=== PATIENT | female | born 1955 | race Caucasian/White ===

== ENCOUNTER 2017-02-14 09:57 | Emergency (ER) | payer SELFPAY ==
[~2017-02-14] VITALS: Ht 165.1 cm; Wt 77.1 kg
[2017-02-14 10:15] VITALS: BP 154/94
--- NOTE | 2017-02-14 10:16 | Emergency Room Report ---
History of Present Illness General Chief Complaint: Upper Extremity Injury Source: Patient Present Illness HPI Patient presents with complaints of left-sided rib cage chest pain Patient reports falling 2 days ago she has continued pain in that area Denies any loss of consciousness patient also had Mild discomfort to the left elbow but denies any active pain at this time denies any neck pain or photophobia Pain in her left rib cage region is 5/10 Patient reports that it was not helped very much with oral medication Allergies: Coded Allergies: No Known Allergies (Unverified , 02/14/17) Patient History Past Medical History: see triage record Pertinent Family History: none Reviewed Nursing Documentation: PMH: Agreed, PSxH: Agreed Nursing Documentation-PMH Past Medical History: No Stated History Review of Systems All Other Systems: negative except mentioned in HPI Physical Exam Vital Signs Date Time Temp Pulse Resp B/P (MAP) Pulse Ox O2 Delivery O2 Flow Rate FiO2 02/14/17 10:04 98.4 81 20 154/94 96 Room Air Sp02 EP Interpretation: reviewed, normal General Appearance: no apparent distress Head: normocephalic, atraumatic Eyes: bilateral eye PERRL, bilateral eye EOMI ENT: hearing grossly normal, normal pharynx Neck: full range of motion, supple Respiratory: lungs clear Cardiovascular #1: regular rate, rhythm, no edema Gastrointestinal: non tender, soft Musculoskeletal: other - Tender on palpation of the rib cage mid axilla just below the breast on the left side, for some motion otherwise in the upper extremity Neurologic: alert, oriented x3 Skin: normal color, no rash Lymphatic: no adenopathy Medical Decision Making Diagnostic Impression: Primary Impression: Closed rib fracture ER Course Given the patient's presentation and history Imaging was obtained Radiology does visualized left-sided rib fracture In line with the location of the patient's discomfort The lower rib cage was apparently not fully visualized however the patient does not clinically have any discomfort in that area At this time I discussed the findings with the patient and she will have close outpatient followup encouraged to have deep inspirations throughout the day CT/MRI/US Diagnostic Results CT/MRI/US Diagnostic Results : Impression CT chestImpression: Positive for nondisplaced left anterolateral fifth rib fracture. No pneumothorax. This was discussed by phone with Dr. Schrader at the time of interpretation No other acute bony trauma Bilateral basilar pulmonary parenchymal opacities. Most likely represent areas of fibrosis or atelectasis, less likely could represent areas of contusion, given history of recent trauma 10 mm cutaneous lesion in the left upper chest wall. Most likely a sebaceous cyst or similar lesion. This should be evident clinically Last Vital Signs Date Time Temp Pulse Resp B/P (MAP) Pulse Ox O2 Delivery O2 Flow Rate FiO2 02/14/17 10:04 98.4 81 20 154/94 96 Room Air Status: improved Disposition: HOME, SELF-CARE Condition: Improved Additional Instructions: Patient is provided with the discharge instructions notified to follow up with primary doctor in the next 2-3 days otherwise return to the er with any worsening symptoms. Please note that this report is being documented using eco[employer]cloud technology. This can lead to erroneous entry secondary to incorrect interpretation by the dictating instrument. HARRIET SCHRADER D.O. Feb 14, 2017 10:16
--- NOTE | 2017-02-14 11:02 | Diagnostic Imaging Report ---
Clinical Indication: TRAUMA, chest pain, possible rib fracture Technique: Spiral acquisitions obtained through the chest. No IV contrast utilized, per trauma protocol. Multiplanar reconstructions generated. Total dose length product 909 mGycm. CTDIvol(s) 23 mGy. Dose reduction achieved using automated exposure control Comparison: None Findings:There is a fracture of the anterolateral left fifth rib. No other rib fractures are demonstrated. Note, however, that the the ninth through 12th ribs are incompletely assessed, as they are incompletely included in the imaging volume. No right rib fractures are demonstrated. The sternum appears intact. No other fractures are demonstrated. No pneumothorax The lungs demonstrate bilateral basilar opacities, mostly groundglass opacities likely representing areas of fibrosis or atelectasis. These could also represent areas of contusion given history of recent trauma. No focal dense consolidation demonstrated. No effusions. No masses or nodules. No mediastinal or hilar mass or adenopathy. The heart size is upper limit normal. No pericardial effusion. No axillary or chest wall mass or adenopathy. There is a subcutaneous round 10 mm lesion in the upper medial left anterior chest wall. Impression: Positive for nondisplaced left anterolateral fifth rib fracture. No pneumothorax. This was discussed by phone with Dr. Barragan at the time of interpretation No other acute bony trauma Bilateral basilar pulmonary parenchymal opacities. Most likely represent areas of fibrosis or atelectasis, less likely could represent areas of contusion, given history of recent trauma 10 mm cutaneous lesion in the left upper chest wall. Most likely a sebaceous cyst or similar lesion. This should be evident clinically The CT scanner at [facility] is accredited by the [employer] and the scans are performed using protocols designed to limit radiation exposure to as low as reasonably achievable to attain images of sufficient resolution adequate for diagnostic evaluation.
[2017-02-14 11:28] VITALS: BP 154/94
== END 2017-02-14 11:28 | disposition home or self-care (01) ==
LOC: EMR 10:16
DX: S22.32XA Fracture of one rib, left side, initial encounter for closed fracture (principal); W19.XXXA Unspecified fall, initial encounter; Y92.89 Other specified places as the place of occurrence of the external cause
CPT/HCPCS: 71250; 99284

== ENCOUNTER 2017-05-10 21:11 | Emergency (ER) | payer SELFPAY ==
[~2017-05-10] VITALS: Ht 167.6 cm; Wt 72.6 kg
[2017-05-10] MEDS ORDERED: NKM (21:25)
[2017-05-10 21:40] VITALS: BP 139/95
[2017-05-10] MEDS ORDERED: Lidocaine 1% Plain 30 ml INJ ONE (21:45)
[2017-05-10] MEDS ORDERED: Norco 5mg/325mg tab ORAL ONE (22:15)
[2017-05-10] MEDS ORDERED: Bactrim-DS 1 tab ORAL ONE (22:15)
[2017-05-10] MEDS ORDERED: IBUPROFEN600 MG ORAL (22:19)
[2017-05-10] MEDS ORDERED: BACTRIM DS TAB1 EAC1 ORAL (22:19)
--- NOTE | 2017-05-10 22:19 | Emergency Room Report ---
History of Present Illness General Chief Complaint: Skin Rash/Abscess Source: Patient Present Illness HPI Is a pleasant 61-year-old female with no significant past medical history. She presents with chief complaint of rash to her left chest. Been ongoing for 5 days. Increasing pain and vomiting. No drainage. Increasing redness. No fever chills. Never had this problem before the pain is 7/10. Worse With palpation. Allergies: Coded Allergies: No Known Allergies (Unverified , 02/14/17) Patient History Past Medical History: see triage record, old chart reviewed Past Surgical History: other Pertinent Family History: none Social History: Denies: smoking Now: No Immunizations: other Reviewed Nursing Documentation: PMH: Agreed, PSxH: Agreed Nursing Documentation-PMH Past Medical History: No Stated History Review of Systems Eye: Denies: eye pain, blurred vision ENT: Denies: ear pain, nose congestion, throat swelling Respiratory: Denies: cough, shortness of breath Cardiovascular: Denies: chest pain, palpitations Gastrointestinal: Denies: abdominal pain, diarrhea, nausea, vomiting Musculoskeletal: Denies: back pain, joint pain Skin: Denies: rash Neurological: Denies: headache, numbness Endocrine: Denies: increased thirst, increased urine Hematologic/Lymphatic: Denies: easy bruising All Other Systems: negative except mentioned in HPI Physical Exam Vital Signs Date Time Temp Pulse Resp B/P (MAP) Pulse Ox O2 Delivery O2 Flow Rate FiO2 05/10/17 21:22 98.1 89 17 139/95 98 Room Air 98.1 vitals normal Sp02 EP Interpretation: reviewed, normal General Appearance: well appearing, no apparent distress, alert Head: normocephalic, atraumatic Eyes: bilateral eye PERRL, bilateral eye EOMI ENT: hearing grossly normal, normal pharynx Neck: full range of motion, supple, no meningismus Respiratory: chest non-tender, lungs clear, normal breath sounds Cardiovascular #1: regular rate, rhythm, no murmur Gastrointestinal: normal bowel sounds, non tender, no mass, no organomegaly, no bruit, non-distended Musculoskeletal: back normal, gait/station normal, normal range of motion Neurologic: alert, oriented x3 Psychiatric: mood/affect normal Skin: warm/dry, other - Left chest wall: There is an indurated area of 3-4 cm with surrounding cellulitis. Tender to palpation. No crepitance. Procedures Incision and Drainage Incision and Drainage : Consent: Verbal Site: Left chest Blade Size: 11 I & D Procedure: betadine prep, sterile drapes applied, sterile dressing applied, gauze wick placed Wound Location: chest Anesthesia: 1% Lidocaine Volume Anesthetic (ccs): 5 Patient Tolerated: Well Complications: None Progress Area clean with chlorhexidine and Betadine. Local anesthetic 1% lidocaine. I made a 2 cm incision. There was moderate amount of purulent discharge. At the end of it there was some cottage cheesy discharge. I also remove as much of the capsule is possible. Afterward area irrigated and packed with iodoform gauze. Patient tolerated procedure without a problem. Medical Decision Making Diagnostic Impression: Primary Impression: Abscess Additional Impression: Sebaceous cyst of skin of left breast ER Course Patient with infected sebaceous cyst of the left breast area. No deep infection. No necrotizing fasciitis. No foreign body. We'll discharge home. Last Vital Signs Date Time Temp Pulse Resp B/P (MAP) Pulse Ox O2 Delivery O2 Flow Rate FiO2 05/10/17 22:13 98.1 05/10/17 21:40 89 17 139/95 98 Room Air Status: improved Disposition: HOME, SELF-CARE Condition: Stable Scripts Ibuprofen* (MOTRIN*) 600 Mg Tablet 600 MG ORAL THREE TIMES A DAY, #30 TAB 0 Refills Prov: BRIANNA TAVERAS M.D. 05/10/17 Trimethoprim/Sulfamethoxazole 160/800* (BACTRIM DS TABLET*) 1 Each Tablet 1 TAB ORAL Q12H, #14 TAB 0 Refills Prov: BRIANNA TAVERAS M.D. 05/10/17 Patient Instructions: Abscess Additional Instructions: Followup with your doctor or return here in 2 days for recheck and packing removal. Return if worse BRIANNA TAVERAS M.D. May 10, 2017 22:19
[2017-05-10 22:23] VITALS: BP 139/95
== END 2017-05-10 22:23 | disposition home or self-care (01) ==
LOC: EDBD → EMR 21:45
DX: L02.213 Cutaneous abscess of chest wall (principal); L72.3 Sebaceous cyst
CPT/HCPCS: 10060; 99284

== ENCOUNTER 2017-05-12 15:34 | Emergency (ER) | payer SELFPAY ==
[~2017-05-12] VITALS: Ht 167.6 cm; Wt 72.6 kg
[~2017-05-12 15:34] MED LIST: BACTRIM DS TAB1 EAC1 ORAL; IBUPROFEN600 MG ORAL; NKM
[2017-05-12 15:52] VITALS: BP 138/98
--- NOTE | 2017-05-12 16:14 | Emergency Room Report ---
History of Present Illness General Chief Complaint: Wound Recheck/Suture Removal Source: Patient Present Illness HPI 61-year-old female presents to the emergency department complaining of recent incision and drainage to abscess on the left anterior chest 2 days ago. Patient reports 2 out of 10 in severity burning and pressure-like discomfort. Patient states she's been taking her antibiotics she reports some mild drainage and that she has packing in place. Patient denies fevers or chills or worsening erythema about the wound. Allergies: Coded Allergies: No Known Allergies (Unverified , 02/14/17) Patient History Past Medical History: see triage record Past Surgical History: none Pertinent Family History: none Reviewed Nursing Documentation: PMH: Agreed, PSxH: Agreed Nursing Documentation-PMH Past Medical History: No Stated History Review of Systems All Other Systems: negative except mentioned in HPI Physical Exam Vital Signs Date Time Temp Pulse Resp B/P (MAP) Pulse Ox O2 Delivery O2 Flow Rate FiO2 05/12/17 15:42 97.7 78 17 140/100 96 Room Air 97.7 Sp02 EP Interpretation: reviewed, normal General Appearance: no apparent distress, alert, GCS 15, non-toxic Head: normocephalic, atraumatic ENT: hearing grossly normal, normal voice Neck: full range of motion Respiratory: lungs clear, normal breath sounds, speaking full sentences, other - mild ttp about incision Cardiovascular #1: regular rate, rhythm Musculoskeletal: back normal, gait/station normal, normal range of motion, non- tender Neurologic: alert, oriented x3, responsive, motor strength/tone normal, sensory intact, speech normal, grossly normal Psychiatric: judgement/insight normal Skin: normal color, no rash, warm/dry, wd healing/no infection noted - Previously incised left ant. chest abscess with wound packing in place, no surrounding erythema noted. Lymphatic: no adenopathy Medical Decision Making PA Attestation Dr. montes is my supervising Physician whom patient management has been discussed with. Diagnostic Impression: Primary Impression: Encounter for wound re-check ER Course 61-year-old female presents to the emergency department complaining of recent incision and drainage to abscess on the left anterior chest 2 days ago. Patient reports 2 out of 10 in severity burning and pressure-like discomfort. Patient states she's been taking her antibiotics she reports some mild drainage and that she has packing in place. Patient denies fevers or chills or worsening erythema about the wound. Ddx considered but are not limited to cellulitis, abscess, cystic acne, necrotizing fasciitis, insect bite. Vital signs: are WNL, pt. is afebrile H&PE are most consistent with healing previously incised abscess. ORDERS: none required at this time, the diagnosis is clinical ED INTERVENTIONS: - Some wound packing removed- due to depth of wound some packing left in-place to facilitate healing from the interior out. -Sterile dressing applied. d/w pt. to continue taking po abx and to look for signs of infection and to return in 2-3 days for re-evaluation and removal of remaining wound packing. DISCHARGE: At this time pt. is stable for d/c to home. Will provide printed patient care instructions, and any necessary prescriptions. Care plan and follow up instructions have been discussed with the patient prior to discharge. Last Vital Signs Date Time Temp Pulse Resp B/P (MAP) Pulse Ox O2 Delivery O2 Flow Rate FiO2 05/12/17 15:42 97.7 78 17 140/100 96 Room Air 97.7 Disposition: HOME, SELF-CARE Condition: Stable Patient Instructions: Wound Check Additional Instructions: Take medications as directed. Follow up with a Primary Care Provider in 3-5 days, even if your symptoms have resolved. --Please review list of primary care clinics, if you do not already have a primary care provider Return sooner to ED if new symptoms occur, or current symptoms become worse. - Please note that this Emergency Department Report was dictated using [employer] fore[employer] technology software, occasionally this can lead to erroneous entry secondary to interpretation by the dictation equipment. Ann-Marie Villarreal May 12, 2017 16:14
[2017-05-12 16:42] VITALS: BP 138/98
== END 2017-05-12 17:47 | disposition home or self-care (01) ==
LOC: EMR 15:50
DX: L02.213 Cutaneous abscess of chest wall (principal)
CPT/HCPCS: 99281